=== PATIENT | male | born 1995 | race Caucasian/White ===

== ENCOUNTER 2019-08-14 10:17 | Emergency (ER) | payer OTHER, SELFPAY ==
[2019-08-14 10:27] VITALS: BP 119/67; PULSE 81; RESP 16; TEMP 36.8; O2SAT 99
--- NOTE | 2019-08-14 10:27 | ED.GENADULT ---
HPI - General Adult General Chief complaint: Upper Respiratory Infection Stated complaint: sore throat some sob and aches Time Seen by Provider: 08/14/19 10:46 Source: patient Mode of arrival: ambulatory Limitations: no limitations History of Present Illness HPI narrative: 24-year-old male patient presents [facility] with complaints of sore throat for the past 2 to 3 days. Patient states he is also had some overall body aches. Denies any fevers. Denies any ear pain. States he has had a little bit of a runny nose. And and a slight cough. Denies any chest pain or shortness of breath. Denies any abdominal pain, nausea, vomiting or diarrhea. Patient states he does have seasonal allergies at times. Patient states he has tried an [id number] cold and cough syrup to help soothe his throat. Patient states he has had strep throat before in the past. Related Data Home Medications Medication Instructions Recorded Confirmed lamotrigine 300 mg PO DAILY 04/17/19 08/14/19 quetiapine [Seroquel] 100 mg PO HS 04/17/19 08/14/19 Allergies Allergy/AdvReac Type Severity Reaction Status Date / Time amoxicillin AdvReac Unknown Nausea and Verified 08/14/19 10:42 Vomiting codeine AdvReac Unknown Nausea and Verified 08/14/19 10:42 Vomiting Penicillins AdvReac Unknown Nausea and Verified 08/14/19 10:42 Vomiting Review of Systems Review of Systems: Narrative: CONSTITUTIONAL: Denies fever, chills, or sweats. Positive body aches EYES: Denies visual changes, redness, or discharge. ENT: Positive rhinorrhea, denies congestion, positive sore throat, denies otalgia. CARDIOVASCULAR: Denies chest pain, palpitations, or edema. RESPIRATORY: Denies cough or dyspnea. GASTROINTESTINAL: Denies abdominal pain, nausea, vomiting, or diarrhea. GENITOURINARY: Denies dysuria or hematuria. SKIN: Denies rash or itching. MUSCULOSKELETAL: Denies back pain, joint pain, or myalgia. NEUROLOGIC: Denies headache, numbness, or weakness. PSYCHIATRIC: Denies anxiety or depression. [facility] Family History Family History Mother Patient's mother is in good health Sibling Patient's brother is in good health Father Family history of alcoholism Social History Social History Smoking status: Light tobacco smoker Second hand tobacco smoke exposure: No Alcohol intake: never Gender identity (if verbalized by the patient): Male Comments At the time of my signature I agree with nursing past medical history, surgical, social, and family history. There is no relevant family history pertinent to the presenting complaint. Exam Narrative: Exam Narrative: GENERAL: Well-appearing, well-nourished, and in no acute distress. HEAD: Normocephalic, atraumatic. No tenderness noted to frontal maxillary sinuses on palpation EYES: PERRLA and EOMI. ENT: Nares with erythema and edema noted bilaterally, no rhinorrhea or epistaxis. Mucous membranes moist. Posterior pharynx with some erythema but no tonsil enlargement, no exudates or lesions present. Bilateral TMs are clear with no erythema or foreign bodies in the canal. There is a little bit of fluid noted behind bilateral TMs on exam. NECK: Supple. No lymphadenopathy CHEST: Clear to auscultation. No respiratory distress. HEART: Regular rate and rhythm. No murmur heard. Normal peripheral pulses. ABDOMEN: Soft, nontender, nondistended, normal active bowel sounds. EXTREMITIES: Normal range of motion. No edema. SKIN: Warm, dry, no rash. NEURO: No focal deficits. Alert and oriented x3. Course Reevaluation(s) Reevaluation #1: Reevaluated patient after his strep test had resulted. Notified him that his strep test today is negative. Discussed with him we will send it off to the lab for further evaluation if it does come back positive in the next day or 2 [address] call and place him on antibiotics at that ti
--- NOTE | 2019-08-14 10:41 | PC.NURSE ---
NO UC ORDERED PER PROVIDER
== END 2019-08-14 11:02 | disposition home or self-care (01) ==
PROVIDERS: Emergency Provider Nurse Practitioner Family
DX: J30.2 Other seasonal allergic rhinitis (principal); J02.9 Acute pharyngitis, unspecified
CPT/HCPCS: 87081; 87880; 99213; G0463

== ENCOUNTER 2020-03-31 12:06 | Emergency (ER) | payer OTHER, SELFPAY ==
[2020-03-31 12:25] VITALS: BP 122/73; PULSE 81; RESP 18; TEMP 37; O2SAT 99
--- NOTE | 2020-03-31 12:36 | ED.DENTAL ---
HPI - Dental/Oral General Stated complaint: Dental Infection Source: patient Mode of arrival: ambulatory Limitations: no limitations History of Present Illness HPI Narrative: Patient is a 25-year-old male who presents complaining of dental pain. Patient reports left upper dental pain x2 days. Patient reports cracked tooth and increasing pain over the past 2 days. He reports taking ibuprofen with limited relief. He reports appointment with dentist in April. He denies all other complaints. MD Complaint: tooth pain Related Data Home Medications Medication Instructions Recorded Confirmed lamotrigine 300 mg PO DAILY 04/17/19 08/14/19 quetiapine [Seroquel] 100 mg PO HS 04/17/19 08/14/19 Allergies Allergy/AdvReac Type Severity Reaction Status Date / Time amoxicillin AdvReac Unknown Nausea and Verified 03/31/20 12:42 Vomiting codeine AdvReac Unknown Nausea and Verified 03/31/20 12:42 Vomiting Penicillins AdvReac Unknown Nausea and Verified 03/31/20 12:42 Vomiting Review of Systems Review of Systems: Narrative: CONSTITUTIONAL: Denies fever, chills, or sweats. EYES: Denies visual changes, redness, or discharge. ENT: Reports dental pain CARDIOVASCULAR: Denies chest pain, palpitations, or edema. RESPIRATORY: Denies cough or dyspnea. GASTROINTESTINAL: Denies abdominal pain, nausea, vomiting, or diarrhea. GENITOURINARY: Denies dysuria or hematuria. SKIN: Denies rash or itching. MUSCULOSKELETAL: Denies back pain, joint pain, or myalgia. NEUROLOGIC: Denies headache, numbness, dizziness, or weakness. PSYCHIATRIC: Denies anxiety or depression. [facility] Family History Family History Mother Patient's mother is in good health Sibling Patient's brother is in good health Father Family history of alcoholism Social History Social History Smoking status: Light tobacco smoker Second hand tobacco smoke exposure: No Alcohol intake: never Substance use: current Substance use type: marijuana Living arrangements: with family Gender identity (if verbalized by the patient): Male Exam Narrative: Exam Narrative: GENERAL: Well-appearing, well-nourished, and in no acute distress. HEAD: Normocephalic, atraumatic. EYES: EOMI. No redness or drainage. Conjunctiva are normal. ENT: Mucous membranes pink and moist. Multiple dental caries and fractures. CHEST: No respiratory distress. HEART: Regular rate and rhythm. EXTREMITIES: Normal range of motion. SKIN: Warm, dry, no rash. NEURO: No focal deficits. Alert and oriented x3. Gait steady. PSYCH: Normal affect. No signs of depression or anxiety. MDM - Dental/Oral MDM Narrative Medical decision making narrative: Patient has multiple dental caries as well as dental fractures. Discussed with patient the importance of seeing a dentist regularly. Patient reports scheduled dental appointment in April. Discussed starting on antibiotics at this time as well as ibuprofen. Patient is stable for discharge to home with outpatient follow-up as needed. Differential Diagnosis Differential diagnosis: Likely dental caries, toothache, dental abscess and fracture of tooth Critical Care Time Critical Care Time Critical Care Time: No Discharge Plan Discharge Clinical Impression: Pain, dental Patient Disposition: Home, Self-Care Condition: Stable Instructions: Antibiotic Form, Toothache (ED) Additional Instructions: Take antibiotics as directed. You may use ibuprofen or Tylenol for pain. Follow-up with dentist as discussed. Prescriptions: New clindamycin HCl 300 mg capsule 300 mg PO Q8H 7 Days Qty: 21 RF: 0 ibuprofen 800 mg tablet 800 mg PO TID PRN (Reason: pain) Qty: 20 RF: 0 No Action quetiapine [Seroquel] 100 mg Tablet 100 mg PO HS RF: 0 lamotrigine 300 mg Tablet Extended Release 24hr 300 mg PO DAILY RF: 0 ceti
== END 2020-03-31 12:45 | disposition home or self-care (01) ==
PROVIDERS: Emergency Provider Nurse Practitioner
DX: K08.89 Other specified disorders of teeth and supporting structures (principal); F17.200 Nicotine dependence, unspecified, uncomplicated
CPT/HCPCS: 99213; G0463

== ENCOUNTER 2020-04-27 10:29 | Emergency (ER) | payer OTHER, SELFPAY ==
[2020-04-27 10:48] VITALS: BP 120/72; PULSE 77; RESP 18; TEMP 37.2; O2SAT 100
--- NOTE | 2020-04-27 10:50 | ED.GENADULT ---
HPI - General Adult General Chief complaint: Dental/Oral Stated complaint: tooth pain Time Seen by Provider: 04/27/20 10:50 Source: patient Mode of arrival: ambulatory Limitations: no limitations History of Present Illness HPI narrative: 25-year-old male patient presents to the [facility] with complaints of left upper dental pain for the past week. Patient was seen here last week for similar symptoms and was given an antibiotic. Patient states he did feel better after the antibiotic but states he has a broken tooth and did call to get an appointment to see a dentist but does not have an appointment for another 3 months. Patient states he has been taking Tylenol for pain which does help and rates his pain about a 3 out of 10 at this time. Related Data Home Medications Medication Instructions Recorded Confirmed lamotrigine 300 mg PO DAILY 04/17/19 04/27/20 quetiapine [Seroquel] 100 mg PO HS 04/17/19 04/27/20 Allergies Allergy/AdvReac Type Severity Reaction Status Date / Time amoxicillin AdvReac Unknown Nausea and Verified 04/27/20 11:01 Vomiting codeine AdvReac Unknown Nausea and Verified 04/27/20 11:01 Vomiting Penicillins AdvReac Unknown Nausea and Verified 04/27/20 11:01 Vomiting Review of Systems Review of Systems: Narrative: CONSTITUTIONAL: Denies fever, chills, or sweats. EYES: Denies visual changes, redness, or discharge. ENT: Denies rhinorrhea, congestion, sore throat, or otalgia. Positive left upper dental pain x1 week CARDIOVASCULAR: Denies chest pain, palpitations, or edema. RESPIRATORY: Denies cough or dyspnea. GASTROINTESTINAL: Denies abdominal pain, nausea, vomiting, or diarrhea. GENITOURINARY: Denies dysuria or hematuria. SKIN: Denies rash or itching. MUSCULOSKELETAL: Denies back pain, joint pain, or myalgia. NEUROLOGIC: Denies headache, numbness, or weakness. PSYCHIATRIC: Denies anxiety or depression. [facility] Family History Family History Mother Patient's mother is in good health Sibling Patient's brother is in good health Father Family history of alcoholism Social History Social History Smoking status: Light tobacco smoker Second hand tobacco smoke exposure: No Alcohol intake: never Substance use: current Substance use type: marijuana Gender identity (if verbalized by the patient): Male Comments At the time of my signature I agree with nursing past medical history, surgical, social, and family history. There is no relevant family history pertinent to the presenting complaint. Exam Narrative: Exam Narrative: GENERAL: Well-appearing, well-nourished, and in no acute distress. HEAD: Normocephalic, atraumatic. EYES: PERRLA and EOMI. ENT: Nares clear, no rhinorrhea or epistaxis. Mucous membranes moist. Patient does have a left upper molar that is broken with surrounding erythema and tenderness to the touch. Patient also noted to have a small tear to the inside of his cheek from where it is rubbing up against the broken molar. No obvious swelling noted to the outer cheek. Patient able to tolerate secretions well and talks in clear complete sentences. NECK: Supple. No lymphadenopathy CHEST: Clear to auscultation. No respiratory distress. HEART: Regular rate and rhythm. No murmur heard. Normal peripheral pulses. ABDOMEN: Soft, nontender, nondistended, normal active bowel sounds. EXTREMITIES: Normal range of motion. No edema. SKIN: Warm, dry, no rash. NEURO: No focal deficits. Alert and oriented x3. Course Vital Signs Vital signs: Vital Signs Temperature 37.2 C 04/27/20 10:48 Pulse Rate 77 04/27/20 10:48 Respiratory Rate 18 04/27/20 10:48 Blood Pressure 120/72 04/27/20 10:48 Pulse Oximetry 100 04/27/20 10:48 Temperature 37.2 C 04/27/20 10:48 Pulse Rate 77 04/27/20 10:48 Respiratory Rate 18 04/27/20 10:48 Blood Pressure 120/72
== END 2020-04-27 11:08 | disposition home or self-care (01) ==
PROVIDERS: Emergency Provider Nurse Practitioner Family
DX: K02.9 Dental caries, unspecified (principal); S02.5XXA Fracture of tooth (traumatic), initial encounter for closed fracture; X58.XXXA Exposure to other specified factors, initial encounter
CPT/HCPCS: 99213; G0463

== ENCOUNTER 2020-08-07 10:17 | Emergency (ER) | payer OTHER, SELFPAY ==
--- NOTE | ~2020-08-07 | XR_ITS ---
EXAMINATION: XR abdomen/kub 1V EXAM DATE: 08/07/2020 11:04 INDICATION: Left flank pain, intermittent for 8 months. History of kidney stones. TECHNIQUE: Frontal projection(s) of the abdomen for interpretation. There is no prior study for jeannette terry. FINDINGS: Couple of calcific densities which are rather linear, and could be some early chondral car tilage calcification, they would be unusual shapes for kidney stones. One of these projects over expe cted course of the left proximal ureter. These have been indicated on the exam. No pelvic calcificati ons. Expected amount of colonic stool. No dilated small bowel. There is no organomegaly. There are no osseous abnormalities identified. IMPRESSION: Several calcific densities most likely not genitourinary but if symptoms persist CT scan without contrast would be appropriate. Reviewed, dictated and finalized at location A. IMPRESSION: Several calcific densities most likely not genitourinary but if sy mptoms persist CT scan without contrast would be appropriate.
[2020-08-07 10:20] VITALS: BP 133/73; PULSE 86; RESP 20; TEMP 36.6; O2SAT 99
--- NOTE | 2020-08-07 10:22 | ED.BACK ---
HPI - Back Pain/Injury General Chief Complaint: Urogenital-Male Stated Complaint: Lower back pain Time Seen by Provider: 08/07/20 10:40 Source: patient and RN notes reviewed Mode of arrival: ambulatory Limitations: no limitations History of Present Illness HPI Narrative: 25 year old male presents concern for intermittent left flank pain. Reports pain has been occurring on and off for 8 to 12 months. Reports he was diagnosed with a 3 mm kidney stone many months ago, is unsure if he passed the stone. Reports he will have persistent pain for 1 day, then pain will be gone for a day or several days. Reports pressure to the left flank relieves pain. Reports currently pain is approximately 3/10. He denies nausea, vomiting, constipation, diarrhea, fever, dysuria, frequency, urgency. MD elicited complaint: back pain Related Data Home Medications Medication Instructions Recorded Confirmed quetiapine [Seroquel] 100 mg PO HS 04/17/19 08/07/20 Allergies Allergy/AdvReac Type Severity Reaction Status Date / Time amoxicillin AdvReac Unknown Nausea and Verified 08/07/20 10:38 Vomiting codeine AdvReac Unknown Nausea and Verified 08/07/20 10:38 Vomiting Penicillins AdvReac Unknown Nausea and Verified 08/07/20 10:38 Vomiting Review of Systems Review of Systems: Narrative: CONSTITUTIONAL: Denies malaise, chills, sweats, or fever. CARDIOVASCULAR: Denies chest pain, palpitations, or edema. RESPIRATORY: Denies cough or dyspnea. GASTROINTESTINAL: Denies abdominal pain, nausea, vomiting, diarrhea, bloody, or mucous stools. GENITOURINARY: Denies dysuria or hematuria. SKIN: Denies rash or itching. MUSCULOSKELETAL: Reports intermittent left flank pain for 8 to 12 months. Denies joint pain, or myalgia. All systems reviewed & are unremarkable except as noted in HPI and below PMFSH Family History Family History Mother Patient's mother is in good health Sibling Patient's brother is in good health Father Family history of alcoholism Social History Social History Smoking status: Light tobacco smoker Second hand tobacco smoke exposure: No Alcohol intake: never Substance use: current Substance use type: marijuana Gender identity (if verbalized by the patient): Male Comments At time of signature, agree with nursing past medical, surgical, social and family history. There is no relevant family history pertinent to the presenting complaint Exam Narrative: Exam Narrative: GENERAL: Well-appearing, well-nourished, and in no acute distress. HEAD: Normocephalic. EYES: PERRLA, conjunctivae clear. NECK: Supple. No lymphadenopathy CHEST: Clear to auscultation. No respiratory distress. HEART: Regular rate and rhythm. ABDOMEN: Soft, nontender upon palpation, nondistended, normal active bowel sounds, no palpable or pulsatile masses, no guarding. Minimal left CVA tenderness SKIN: Warm, dry, no rash. NEURO: Alert and oriented x3. PSYCH: Normal mood and affect Course Course Emergency Course: Patient is aware of diagnosis, understands and agrees to treatment plan. Anticipatory guidance given. Patient agrees to follow-up as directed and is aware of reasons to seek care at the emergency department. Portions of this record may have been created with voice recognition software Vital Signs Vital signs: Vital Signs Temperature 97.9 F 08/07/20 10:20 Pulse Rate 86 08/07/20 10:20 Respiratory Rate 20 08/07/20 10:20 Blood Pressure 133/73 08/07/20 10:20 Pulse Oximetry 99 08/07/20 10:20 Temperature 97.9 F 08/07/20 10:20 Pulse Rate 86 08/07/20 10:20 Respiratory Rate 20 08/07/20 10:20 Blood Pressure 133/73 08/07/20 10:20 Pulse Oximetry 99 08/07/20 10:20 Reviewed. MDM - Back Pain/Injury MDM Narrative Medical decision making narrative: Exam findings, UA, and imaging show no acute con
== END 2020-08-07 11:35 | disposition home or self-care (01) ==
PROVIDERS: Emergency Provider Nurse Practitioner
DX: R10.9 Unspecified abdominal pain (principal); F17.200 Nicotine dependence, unspecified, uncomplicated; F41.9 Anxiety disorder, unspecified; F32.9 Major depressive disorder, single episode, unspecified
CPT/HCPCS: 74018; 81003; 99213; G0463

== ENCOUNTER 2020-11-09 08:11 | Emergency (ER) | payer OTHER, SELFPAY ==
[2020-11-09 08:23] VITALS: BP 117/72; PULSE 73; RESP 18; TEMP 36.3; O2SAT 99
--- NOTE | 2020-11-09 08:37 | ED.DENTAL ---
HPI - Dental/Oral General Chief complaint: Dental/Oral Stated complaint: tooth pain Time Seen by Provider: 11/09/20 08:35 Source: patient and RN notes reviewed Mode of arrival: ambulatory Limitations: no limitations History of Present Illness HPI Narrative: 25-year-old male presents concern for left lower dental pain. Reports a broken tooth in that area that has started to cause pain. Reports the tooth has been broken for approximately a year and a half. He reports he also has impacted rear teeth. Reports she is trying to find a oral surgeon. Reports he is on a waiting list to dentist to address his other dental issues. Reports he had an infection in April that was successfully treated with antibiotics. He denies any difficulty swallowing, fever. MD Complaint: tooth pain Related Data Home Medications Medication Instructions Recorded Confirmed quetiapine [Seroquel] 100 mg PO HS 04/17/19 11/09/20 lamotrigine 300 mg PO DAILY 11/09/20 11/09/20 propranolol 80 mg PO HS 11/09/20 11/09/20 Allergies Allergy/AdvReac Type Severity Reaction Status Date / Time amoxicillin AdvReac Unknown Nausea and Verified 11/09/20 08:38 Vomiting codeine AdvReac Unknown Nausea and Verified 11/09/20 08:38 Vomiting Penicillins AdvReac Unknown Nausea and Verified 11/09/20 08:38 Vomiting Review of Systems Review of Systems: CONSTITUTIONAL: Denies malaise, chills, sweats, or fever. ENT: Denies rhinorrhea, congestion, sinus pain, otalgia or sore throat. Reports left lower dental pain MUSCULOSKELETAL: Denies myalgia. NEUROLOGIC: Reports mild headache. All systems reviewed & are unremarkable except as noted in HPI and below PMFSH Family History Family History Mother Patient's mother is in good health Sibling Patient's brother is in good health Father Family history of alcoholism Social History Social History Smoking status: Light tobacco smoker Second hand tobacco smoke exposure: No Alcohol intake: never Substance use: current Substance use type: marijuana Gender identity (if verbalized by the patient): Male Comments At time of signature, agree with nursing past medical, surgical, social and family history. There is no relevant family history pertinent to the presenting complaint Exam Narrative: GENERAL: Well-appearing, well-nourished, and in no acute distress. HEAD: Normocephalic, atraumatic. EYES: PERRLA, conjunctivae clear ENT: Nares clears. Mucous membranes moist. Oropharynx without erythema or lesions. Tonsils not enlarged and without exudate. Gingival erythema and edema near teeth 17 and 18, no periapical abscess noted NECK: Supple. CHEST: No respiratory distress. Speaks in full sentences. HEART: Regular rate and rhythm. SKIN: Warm, dry, no rash. NEURO: Alert and oriented x3. PSYCH: Normal mood and affect Course Course Emergency Course: Patient is aware of diagnosis, understands and agrees to treatment plan. Anticipatory guidance given. Patient agrees to follow-up as directed and is aware of reasons to seek care at the emergency department. Portions of this record may have been created with voice recognition software Vital Signs Vital signs: Vital Signs Temperature 97.4 F L 11/09/20 08:23 Pulse Rate 73 11/09/20 08:23 Respiratory Rate 18 11/09/20 08:23 Blood Pressure 117/72 11/09/20 08:23 Pulse Oximetry 99 11/09/20 08:23 Temperature 97.4 F L 11/09/20 08:23 Pulse Rate 73 11/09/20 08:23 Respiratory Rate 18 11/09/20 08:23 Blood Pressure 117/72 11/09/20 08:23 Pulse Oximetry 99 11/09/20 08:23 Reviewed. MDM - Dental/Oral MDM Narrative Medical decision making narrative: Patients pain and complaint coupled with physical findings are consistant with dentalgia. There are no focal signs of space occupying lesions that are compromising to the airway; no
== END 2020-11-09 08:47 | disposition home or self-care (01) ==
PROVIDERS: Emergency Provider Nurse Practitioner
DX: K08.89 Other specified disorders of teeth and supporting structures (principal); F17.200 Nicotine dependence, unspecified, uncomplicated
CPT/HCPCS: 99213; G0463

== ENCOUNTER 2021-01-11 08:36 | Emergency (ER) | payer OTHER, SELFPAY ==
--- NOTE | 2021-01-11 08:42 | ED.EAR ---
HPI - Ear Problem General Chief complaint: Ear Stated complaint: ear pain Time Seen by Provider: 01/11/21 08:42 Source: patient and RN notes reviewed History of Present Illness HPI Narrative: Patient is a 25-year-old male who presents the urgent care with complaints of left ear pain for the last 2 days. Patient states that he feels like there is fluid behind the ear, pressure and drainage. Patient has taken Tylenol for the pain. Denies any fever, chills, nausea, vomiting. Patient denies putting anything in the ear. No other acute complaints. No acute distress noted. Patient aware of the plan of care. Some parts of this dictation were generated by voice recognition software and may contain typographical and/or grammatical inaccuracies. Related Data Home Medications Medication Instructions Recorded Confirmed quetiapine [Seroquel] 100 mg PO HS 04/17/19 01/11/21 lamotrigine 300 mg PO DAILY 11/09/20 01/11/21 propranolol 80 mg PO HS 11/09/20 01/11/21 meloxicam 7.5 mg PO BID 01/11/21 01/11/21 tamsulosin 0.4 mg PO DAILY 01/11/21 01/11/21 Allergies Allergy/AdvReac Type Severity Reaction Status Date / Time amoxicillin AdvReac Unknown Nausea and Verified 01/11/21 08:55 Vomiting codeine AdvReac Unknown Nausea and Verified 01/11/21 08:55 Vomiting Penicillins AdvReac Unknown Nausea and Verified 01/11/21 08:55 Vomiting Review of Systems Review of Systems: CONSTITUTIONAL: Denies fever, chills, or sweats. EYES: Denies visual changes, redness, or discharge. ENT: Denies rhinorrhea, congestion, sore throat. Reports of left otalgia CARDIOVASCULAR: Denies chest pain, palpitations, or edema. RESPIRATORY: Denies cough or dyspnea. GASTROINTESTINAL: Denies abdominal pain, nausea, vomiting, or diarrhea. GENITOURINARY: Denies dysuria or hematuria. SKIN: Denies rash or itching. MUSCULOSKELETAL: Denies back pain, joint pain, or myalgia. NEUROLOGIC: Denies headache, numbness, or weakness. All other systems reviewed are negative, except as documented in HPI. [facility] Family History Family History Mother Patient's mother is in good health Sibling Patient's brother is in good health Father Family history of alcoholism Social History Social History Smoking status: Light tobacco smoker Second hand tobacco smoke exposure: No Alcohol intake: never Substance use: current Substance use type: marijuana Gender identity (if verbalized by the patient): Male Comments At the time of my signature, I reviewed and agree with the nursing past medical, surgical, social, and family history. There is no relevant family history pertinent to the patient complaint. Exam Narrative: GENERAL: This is a well-nourished, well-developed patient, in no apparent distress. HEAD: normocephalic, atraumatic. EYES: PERRL. Sclera clear/white. Vision is grossly intact. EARS: External ears normal, mild to moderate erythema and edema noted to the left ear canal without drainage, right auditory canals clear and without drainage, left TM injected with moderate effusion, right TM normal without perforation. Hearing grossly intact. NOSE: External nose normal with no obvious nasal discharge, nares without redness, no rhinorrhea. THROAT: Mucous membranes moist NECK: Neck supple CARDIOVASCULAR: Regular rate and rhythm without murmurs, gallops, or rubs. RESPIRATORY: Clear to auscultation. Breath sounds equal bilaterally. No wheezes, rales, or rhonchi. SKIN: warm, intact with no suspicious lesions or rash, good texture and turgor. NEURO: awake, alert, and oriented to person, place and time. There were no obvious focal neurologic abnormalities. EXTREMITIES: No clubbing, cyanosis, or edema. Course Vital Signs Vital signs: Vital Signs Temperature 98.2 F 01/11/21 08:46 Pulse Rate 87 01/11/21 08:46 Respiratory Rate 14 01/11/21 08:46 Blood
[2021-01-11 08:46] VITALS: BP 114/63; PULSE 87; RESP 14; TEMP 36.8; O2SAT 98
== END 2021-01-11 09:00 | disposition home or self-care (01) ==
PROVIDERS: Emergency Provider Nurse Practitioner Family
DX: H66.92 Otitis media, unspecified, left ear (principal); H60.502 Unspecified acute noninfective otitis externa, left ear; F17.200 Nicotine dependence, unspecified, uncomplicated; F41.9 Anxiety disorder, unspecified; F32.9 Major depressive disorder, single episode, unspecified; F43.10 Post-traumatic stress disorder, unspecified
CPT/HCPCS: 99213; G0463

== ENCOUNTER 2021-06-25 13:41 | Emergency (ER) | payer OTHER, SELFPAY ==
[2021-06-25 14:06] VITALS: BP 137/87; PULSE 79; RESP 16; TEMP 36.7; O2SAT 99
--- NOTE | 2021-06-25 14:34 | ED.DENTAL ---
HPI - Dental/Oral General Chief complaint: Dental/Oral Stated complaint: tooth pain Time Seen by Provider: 06/25/21 14:35 Source: patient, RN notes reviewed and old records reviewed Mode of arrival: ambulatory Limitations: no limitations History of Present Illness HPI Narrative: 30-year-old male presents to the [facility] with right posterior lower dental pain, swelling for the last 2 to 3 days. Has a history of dental abscesses. States he has an [facility] in a couple of weeks. MD Complaint: tooth pain Related Data Home Medications Medication Instructions Recorded Confirmed quetiapine [Seroquel] 100 mg PO HS 04/17/19 06/25/21 lamotrigine 300 mg PO DAILY 11/09/20 06/25/21 propranolol 80 mg PO HS 11/09/20 06/25/21 Allergies Allergy/AdvReac Type Severity Reaction Status Date / Time amoxicillin AdvReac Unknown Nausea and Verified 06/25/21 14:20 Vomiting codeine AdvReac Unknown Nausea and Verified 06/25/21 14:20 Vomiting Penicillins AdvReac Unknown Nausea and Verified 06/25/21 14:20 Vomiting Review of Systems Review of Systems: All systems reviewed & are unremarkable except as noted in HPI and below Constitutional: Constitutional: Reports no additional constitutional complaints, Denies chills and Denies fever(s) Eyes: Eyes: Reports no additional eye complaints ENT: Reports as per HPI Comments: Dental pain right lower Cardiovascular: Cardiovascular: Reports no additional cardiovascular complaints, Denies chest pain and Denies dyspnea Respiratory: Respiratory: Reports no additional respiratory complaints, Denies cough and Denies dyspnea Musculoskeletal: Musculoskeletal: Reports no additional musculoskeletal complaints Integumentary/Breasts: Skin/Breast: Reports system reviewed and no additional complaints, except as docu Neurologic: Reports system reviewed and no additional complaints, except as documented Psychiatric: Psychiatric: Reports no additional psychiatric complaints Allergic/Immunologic: Allergic/Immunologic: Reports no additional allergic/immunologic complaints [facility] Family History Family History Mother Patient's mother is in good health Sibling Patient's brother is in good health Father Family history of alcoholism Social History Social History Smoking status: Light tobacco smoker Second hand tobacco smoke exposure: No Alcohol intake: never Substance use: current Substance use type: marijuana Gender identity (if verbalized by the patient): Male Comments At the time of my signature, I reviewed and agree with the nursing past medical, surgical, social, and family history. There is no relevant family history pertinent to the patient complaint. Exam Const: General: healthy appearing, no acute distress and alert Nutritional Appearance: well nourished Orientation/consciousness: patient oriented x3 Limitations: no limitations HENMT: Head: normal to inspection Ears: external ears normal, TM's normal bilaterally and EAC's normal General nose exam: Normal external nose present and Normal nasal mucous membranes and turbinates present Face and sinus: normal facial exam Mouth: Yes Normal oral and palatal mucosa present Teeth and gingiva: poor dentition Teeth image: 1. Decayed teeth with surrounding erythema in the gingiva Throat: posterior oropharynx normal, tonsils normal and uvula midline Eyes: Conjunctivae: conjunctivae normal Pupils: Equal, round and reactive pupils present Neck: Neck: normal visual inspection, no lymphadenopathy and no meningeal signs Chest: Chest palpation & inspection: normal inspection of the chest Resp: Effort & Inspection: normal respiratory effort Auscultation: clear to auscultation bilaterally Cardio: Rate: regular rate Rhythm: regular rhythm : Gen
== END 2021-06-25 14:45 | disposition home or self-care (01) ==
PROVIDERS: Emergency Provider Nurse Practitioner
DX: K04.7 Periapical abscess without sinus (principal); F17.200 Nicotine dependence, unspecified, uncomplicated; F32.A Depression, unspecified
CPT/HCPCS: 99213; G0463

== ENCOUNTER 2021-08-08 09:26 | Emergency (ER) | payer OTHER, SELFPAY ==
[2021-08-08 09:30] VITALS: BP 137/82; PULSE 86; RESP 16; TEMP 36.2; O2SAT 99
--- NOTE | 2021-08-08 09:37 | ED.URI ---
HPI - URI/Sore Throat General Chief Complaint: Upper Respiratory Infection Stated Complaint: sinus pressure dizzy scratch throat Time Seen by Provider: 08/08/21 09:45 Source: patient and RN notes reviewed Mode of arrival: ambulatory Limitations: no limitations History of Present Illness HPI Narrative: 26-year-old male presents with concern for sinus pressure, congestion, drainage. Reports the right nostril is clogged and the right ear has pressure. He reports sneezing and scratchy throat. He denies fever, bodies, chills, sweats, cough. Denies any [id number] intervention. Reports 2 weeks ago he was on clindamycin for a right wisdom tooth infection. MD elicited complaint: nasal congestion Related Data Home Medications Medication Instructions Recorded Confirmed quetiapine [Seroquel] 100 mg PO HS 04/17/19 08/08/21 lamotrigine 300 mg PO DAILY 11/09/20 08/08/21 Allergies Allergy/AdvReac Type Severity Reaction Status Date / Time amoxicillin AdvReac Unknown Nausea and Verified 08/08/21 09:48 Vomiting codeine AdvReac Unknown Nausea and Verified 08/08/21 09:48 Vomiting Penicillins AdvReac Unknown Nausea and Verified 08/08/21 09:48 Vomiting Review of Systems Review of Systems: CONSTITUTIONAL: Denies malaise, chills, sweats, or fever. EYES: Denies visual changes, redness, or discharge. ENT: Reports rhinorrhea, right sinus congestion, right ear pressure. Denies sinus pain, otalgia and sore throat. CARDIOVASCULAR: Denies chest pain, palpitations, or edema. RESPIRATORY: Denies cough. Denies dyspnea. GASTROINTESTINAL: Denies abdominal pain, nausea, vomiting, diarrhea SKIN: Denies rash or itching. MUSCULOSKELETAL: Denies myalgia. NEUROLOGIC: Denies headache. All systems reviewed & are unremarkable except as noted in HPI and below PMFSH Family History Family History Mother Patient's mother is in good health Sibling Patient's brother is in good health Father Family history of alcoholism Social History Social History Smoking status: Light tobacco smoker Second hand tobacco smoke exposure: No Alcohol intake: never Substance use: current Substance use type: marijuana Gender identity (if verbalized by the patient): Male Comments At time of signature, agree with nursing past medical, surgical, social and family history. There is no relevant family history pertinent to the presenting complaint Exam Narrative: GENERAL: Well-appearing, well-nourished, and in no acute distress. HEAD: Normocephalic EYES: PERRLA, conjunctivae clear ENT: Nares clear, right turbinates edematous and erythematous, clear discharge. Mucous membranes moist. TM pearly hyatt with dull light reflex bilaterally, right bony landmarks slightly erythematous without TM bulging; no tragal tenderness. Oropharynx not erythematous without lesions. Tonsils not enlarged and without exudate, no drooling, no hoarseness, no trismus, uvula midline. NECK: Supple. No lymphadenopathy CHEST: Clear to auscultation, breath sounds equal. No wheezing, rhonchi, rales, or stridor. No respiratory distress, speaks in full sentences. HEART: Regular rate and rhythm. No murmur heard. SKIN: Warm, dry, no rash. NEURO: Alert and oriented x3. PSYCH: Normal mood and affect Course Course Emergency Course: Discussed ear exam with patient and discussed benefits versus risks of starting antibiotics now or waiting for resolution via other pharmacological interventions such as steroids and Flonase. Patient prefers to wait to start antibiotics given he just took clindamycin and antibiotics make her upset. Patient is aware of diagnosis, understands and agrees to treatment plan. Anticipatory guidance given. Patient agrees to follow-up as directed and is aware of reasons to seek care at the emergency department. Portions of this record may have been created with vo
== END 2021-08-08 10:06 | disposition home or self-care (01) ==
PROVIDERS: Emergency Provider Nurse Practitioner
DX: H69.91 Unspecified Eustachian tube disorder, right ear (principal); J01.00 Acute maxillary sinusitis, unspecified; F17.200 Nicotine dependence, unspecified, uncomplicated; F12.90 Cannabis use, unspecified, uncomplicated
CPT/HCPCS: 99213; G0463

== ENCOUNTER 2023-08-25 10:30 | Emergency (ER) | payer OTHER, SELFPAY ==
[2023-08-25 10:36] VITALS: BP 124/82; PULSE 95; RESP 20; TEMP 36.7; O2SAT 100
--- NOTE | 2023-08-25 10:53 | ED.URI ---
HPI - URI/Sore Throat General Chief Complaint: Upper Respiratory Infection Stated Complaint: throat Time Seen by Provider: 08/25/23 10:50 Source: patient, RN notes reviewed and old records reviewed Mode of arrival: ambulatory Limitations: no limitations History of Present Illness HPI Narrative: 28 year old male patient who reports 5-7 day history of sore throat with throat feeling swollen, has had some nasal congestion and drainage denies any cough or any fevers. He states that he has been taking OTC cough drops for his throat discomfort. MD elicited complaint: sore throat, rhinorrhea and nasal congestion Onset (ago): day(s) (5-7) Severity: moderate Exacerbating factors: swallowing Treatments prior to arrival: other (cough drops) Related Data Allergies Allergy/AdvReac Type Severity Reaction Status Date / Time amoxicillin AdvReac Unknown Nausea and Verified 08/08/21 09:48 Vomiting codeine AdvReac Unknown Nausea and Verified 08/08/21 09:48 Vomiting Penicillins AdvReac Unknown Nausea and Verified 08/08/21 09:48 Vomiting Review of Systems Review of Systems: CONSTITUTIONAL: Denies malaise, chills, sweats, or fever. EYES: Denies visual changes, redness, or discharge. ENT: Reports rhinorrhea, congestion, sinus pain,no otalgia and positive for sore throat. CARDIOVASCULAR: Denies chest pain, palpitations, or edema. RESPIRATORY: Reports no cough.? Denies dyspnea. GASTROINTESTINAL: Denies abdominal pain, nausea, vomiting, diarrhea SKIN: Denies rash or itching. MUSCULOSKELETAL: Denies myalgia. NEUROLOGIC: Denies headache. All systems reviewed & are unremarkable except as noted in HPI and below PMFSH Past Medical History Medical History (Updated 08/26/23 @ 16:02 by Gerri Joiner NP) Anxiety Cyst on ear Depression Disorder of left ear lobe Family History Family History Mother Patient's mother is in good health Sibling Patient's brother is in good health Father Family history of alcoholism Social History Social History Smoking packs per day: 1 Smoking cigarettes per day: 20.0 Years smoked: 5 Smoking pack-years: 5.00 Smoking status: Former smoker Tobacco type: cigarettes Second hand tobacco smoke exposure: No Alcohol intake: never Substance use: current Substance use type: marijuana Living arrangements: with family Gender identity (if verbalized by the patient): Male Comments At time of signature, agree with nursing past medical, surgical, social and family history. There is no relevant family history pertinent to the presenting complaint Exam Narrative: GENERAL: Well-appearing, well-nourished, and in no acute distress. HEAD: Normocephalic EYES: PERRLA, conjunctivae clear ENT: Nares clear, turbinates edematous and erythematous, clear discharge. Mucous membranes moist. TM pearly hyatt with dull light reflex bilaterally; no tragal tenderness. Oropharynx erythematous without lesions. Tonsils red and enlarged and without exudate, no drooling, no hoarseness, no trismus, uvula midline. NECK: Supple. No lymphadenopathy CHEST: Clear to auscultation, breath sounds equal. No wheezing, rhonchi, rales, or stridor. No respiratory distress, speaks in full sentences.SAO2 100% on room air HEART: Regular rate and rhythm. No murmur heard. SKIN: Warm, dry, no rash. NEURO: Alert and oriented x3. PSYCH: Normal mood and affect Course Course Emergency Course: Patient is aware of diagnosis, understands and agrees to treatment plan.? Anticipatory guidance given.? Patient agrees to follow-up as directed and is aware of reasons to seek care at the emergency department. Portions of this record may have been created with voice recognition software Level of Care: Express Care Visit Vital Signs Vital signs: Vital Signs Temperature 36.7 C
== END 2023-08-25 11:14 | disposition home or self-care (01) ==
PROVIDERS: Emergency Provider Registered Nurse
DX: J02.0 Streptococcal pharyngitis (principal); Z87.891 Personal history of nicotine dependence; F12.90 Cannabis use, unspecified, uncomplicated
CPT/HCPCS: 87880; 99213; G0463

== ENCOUNTER 2023-08-31 11:27 | Emergency (ER) | payer OTHER, SELFPAY ==
[2023-08-31 11:32] VITALS: BP 138/95; PULSE 105; RESP 20; TEMP 36.6; O2SAT 100
--- NOTE | 2023-08-31 11:49 | ED.URI ---
HPI - URI/Sore Throat General Chief Complaint: Upper Respiratory Infection Stated Complaint: Sore throat/ears/sinus History of Present Illness HPI Narrative: Patient presents with continued sore throat. Patient also reports nasal congestion runny nose and cough. Patient was treated on 08/24 for a strep positive test. And placed on a Z-Ozzy at that time. Patient states he took all the medication as prescribed and states he does not have any improvement in his symptoms. No trouble swallowing no drooling no shortness of breath no chest pain. Related Data Allergies Allergy/AdvReac Type Severity Reaction Status Date / Time amoxicillin AdvReac Unknown Nausea and Verified 08/31/23 11:46 Vomiting codeine AdvReac Unknown Nausea and Verified 08/31/23 11:46 Vomiting Penicillins AdvReac Unknown Nausea and Verified 08/31/23 11:46 Vomiting Review of Systems Review of Systems: CONSTITUTIONAL: Denies fever, chills, or sweats. EYES: Denies visual changes, redness, or discharge. ENT: Denies rhinorrhea, congestion, sore throat, or otalgia. CARDIOVASCULAR: Denies chest pain, palpitations, or edema. RESPIRATORY: Denies cough or dyspnea. GASTROINTESTINAL: Denies abdominal pain, nausea, vomiting, or diarrhea. GENITOURINARY: Denies dysuria or hematuria. SKIN: Denies rash or itching. MUSCULOSKELETAL: Denies back pain, joint pain, or myalgia. NEUROLOGIC: Denies headache, numbness, or weakness. PSYCHIATRIC: Denies anxiety or depression. [facility] Past Medical History Medical History (Updated 08/31/23 @ 11:55 by COREY Byrd) Anxiety Cyst on ear Depression Disorder of left ear lobe Family History Family History Mother Patient's mother is in good health Sibling Patient's brother is in good health Father Family history of alcoholism Social History Social History Smoking packs per day: 1 Smoking cigarettes per day: 20.0 Years smoked: 5 Smoking pack-years: 5.00 Smoking status: Former smoker Tobacco type: cigarettes Second hand tobacco smoke exposure: No Alcohol intake: never Substance use: current Substance use type: marijuana Living arrangements: with family Gender identity (if verbalized by the patient): Male Comments At time of signature, agree with nursing past medical, surgical, social and family history. There is no relevant family history pertinent to the presenting complaint Exam Narrative: The patient is a well-developed, well-nourished in no acute distress. SKIN: Skin is warm and dry without erythema, swelling or exudate. There is good turgor. No tenting. HEAD: Atraumatic. Normocephalic. No temporal or scalp tenderness. EYES: Moist and bright. Sclera and conjunctivae normal. No discharge. PERRLA. Extraocular motions intact. Gross visual acuity intact. EARS: Pinna is normal shape and contour. Clear external auditory canals. TM pearly duff with good cone of light, no erythema or suppuration. Bilateral cerumen noted no gross hearing deficit. NOSE: pink, moist mucosa with good air movement. Clear rhinorrhea without nasal flaring. Septum midline. Mouth: moist mucous membranes. THROAT; mild erythema noted to posterior oropharynx with moderate postnasal drainage. Without exudate or ulceration.. Uvula midline. Normal movement of soft palate. NECK: Supple and nontender with full range of motion without discomfort. No meningeal signs. LUNGS: Equal and bilateral breath sounds without wheezes, rales or rhonchi. CHEST: The chest wall is without retractions or use of accessory muscles. HEART: Has a regular rate and rhythm without murmur, gallops, click or rub. ABDOMEN: Soft, nontender with positive active bowel sounds. No rebound tenderness. EXTREMITIES: Without cyanosis, clubbing or edema. Equal 2+ distal pulses and 2 second capillary refill noted. NEUROLOGIC: alert, active, . The
== END 2023-08-31 12:00 | disposition home or self-care (01) ==
PROVIDERS: Emergency Provider Nurse Practitioner Family
DX: J02.0 Streptococcal pharyngitis (principal); Z87.891 Personal history of nicotine dependence
CPT/HCPCS: 87880; 99213; G0463

== ENCOUNTER 2023-09-27 08:02 | Emergency (ER) | payer OTHER, SELFPAY ==
--- NOTE | 2023-09-27 08:11 | ED.URI ---
HPI - URI/Sore Throat General Chief Complaint: Upper Respiratory Infection Stated Complaint: throat Time Seen by Provider: 09/27/23 08:11 Source: patient, RN notes reviewed and old records reviewed Mode of arrival: ambulatory Limitations: no limitations History of Present Illness HPI Narrative: 28 year old rosy who presents to [facility] care with complaints of sore throat, cough with increased symptoms for the past week. Patient reports that his throat feels swollen and cough is especially worse at night. Patient reports that he has been taking some OTC cold and cough medication.Patient was treated for acute pharyngitis on 08/31/2023 with Clindamycin which he states he completed. MD elicited complaint: cough and sore throat Pertinent past history: other (past strep throat) Onset (ago): week(s) (1) Severity: moderate Able to tolerate fluids by mouth: Yes Treatments prior to arrival: other (OTC cold medication) Related Data Allergies Allergy/AdvReac Type Severity Reaction Status Date / Time amoxicillin AdvReac Unknown Nausea and Verified 08/31/23 11:46 Vomiting codeine AdvReac Unknown Nausea and Verified 08/31/23 11:46 Vomiting Penicillins AdvReac Unknown Nausea and Verified 08/31/23 11:46 Vomiting Review of Systems Review of Systems: CONSTITUTIONAL:Reports malaise, chills, sweats, no known fever. EYES: Denies visual changes, redness, or discharge. ENT: Reports rhinorrhea, congestion, sinus pain,no otalgia and positive sore throat. CARDIOVASCULAR: Denies chest pain, palpitations, or edema. RESPIRATORY: Reports cough.? Denies dyspnea. GASTROINTESTINAL: Denies abdominal pain, nausea, vomiting, diarrhea SKIN: Denies rash or itching. MUSCULOSKELETAL: Denies myalgia. NEUROLOGIC: Denies headache. All systems reviewed & are unremarkable except as noted in HPI and below PMFSH Past Medical History Medical History (Updated 09/29/23 @ 09:35 by Gerri Joiner NP) Anxiety Cyst on ear Depression Disorder of left ear lobe Surgical History Surgical History (Updated 09/27/23 @ 08:31 by Gerri Joiner NP) H/O excision of dermoid cyst left ear lobe Family History Family History Mother Patient's mother is in good health Sibling Patient's brother is in good health Father Family history of alcoholism Social History Social History (Updated 09/27/23 @ 08:32 by Gerri Joiner NP) Smoking packs per day: 1 Smoking cigarettes per day: 20.0 Years smoked: 5 Smoking pack-years: 5.00 Smoking status: Former smoker Tobacco type: cigarettes Second hand tobacco smoke exposure: No Alcohol intake: current Alcohol use details: rare Substance use: current Substance use type: marijuana Living arrangements: with family Gender identity (if verbalized by the patient): Male Comments At time of signature, agree with nursing past medical, surgical, social and family history. There is no relevant family history pertinent to the presenting complaint Exam Narrative: GENERAL: Well-appearing, well-nourished, and in no acute distress. HEAD: Normocephalic EYES: PERRLA, conjunctivae clear ENT: Nares clear, turbinates edematous and erythematous, clear discharge. Mucous membranes moist. TM pearly hyatt with dull light reflex bilaterally; no tragal tenderness. Oropharynx erythematous without lesions. Tonsils not enlarged and without exudate, no drooling, no hoarseness, no trismus, uvula midline.post nasal drainage noted NECK: Supple. No lymphadenopathy CHEST: Clear to auscultation, breath sounds equal. No wheezing, rhonchi, rales, or stridor. No respiratory distress, speaks in full sentences.reports productive coughSAO2 99% on room air HEART: Regular rate and rhythm. No murmur heard. SKIN: Warm, dry, no rash. NEURO: Alert and oriented x3. PSYCH: Normal mood and affect Course Course Emergency Course: P
[2023-09-27 08:12] VITALS: BP 142/98; PULSE 83; RESP 16; TEMP 37.1; O2SAT 99
== END 2023-09-27 08:56 | disposition home or self-care (01) ==
PROVIDERS: Emergency Provider Registered Nurse
DX: J02.9 Acute pharyngitis, unspecified (principal); R05.9 Cough, unspecified; Z87.891 Personal history of nicotine dependence
CPT/HCPCS: 87081; 87880; 99213; G0463

== ENCOUNTER 2024-01-05 08:17 | Emergency (ER) | payer OTHER, SELFPAY ==
[2024-01-05 08:20] VITALS: BP 132/82; PULSE 96; RESP 20; TEMP 36.8; O2SAT 99
--- NOTE | 2024-01-05 08:26 | ED.URI ---
HPI - URI/Sore Throat General Chief Complaint: Upper Respiratory Infection Stated Complaint: poss sinus infection Time Seen by Provider: 01/05/24 08:29 Source: patient and RN notes reviewed Mode of arrival: ambulatory Limitations: no limitations History of Present Illness HPI Narrative: 28-year-old male presented for complaint of nasal congestion and drainage for about 5 days. Has taken Mucinex without relief. Denies Any associated symptoms. MD elicited complaint: cough Related Data Allergies Allergy/AdvReac Type Severity Reaction Status Date / Time amoxicillin AdvReac Unknown Nausea and Verified 08/31/23 11:46 Vomiting codeine AdvReac Unknown Nausea and Verified 08/31/23 11:46 Vomiting Penicillins AdvReac Unknown Nausea and Verified 08/31/23 11:46 Vomiting Review of Systems Review of Systems: CONSTITUTIONAL: Denies malaise, chills, sweats, fever EYES: Denies visual changes, redness, or discharge ENT: Reports rhinorrhea, congestion, denies sinus pain, otalgia, sore throat CARDIOVASCULAR: Denies chest pain, palpitations, edema RESPIRATORY: denies cough, post nasal drainage , dyspnea GASTROINTESTINAL: Denies abdominal pain, nausea, vomiting, diarrhea SKIN: Denies rash or itching MUSCULOSKELETAL: denies myalgia NEUROLOGIC: Denies headache PMFSH Past Medical History Medical History Anxiety Cyst on ear Depression Disorder of left ear lobe Surgical History Surgical History H/O excision of dermoid cyst left ear lobe Family History Family History Mother Patient's mother is in good health Sibling Patient's brother is in good health Father Family history of alcoholism Social History Social History Smoking packs per day: 1 Smoking cigarettes per day: 20.0 Years smoked: 5 Smoking pack-years: 5.00 Smoking status: Former smoker Tobacco type: cigarettes Second hand tobacco smoke exposure: No Alcohol intake: current Alcohol use details: rare Substance use: current Substance use type: marijuana Living arrangements: with family Gender identity (if verbalized by the patient): Male Exam Narrative: GENERAL: well-appearing, nontoxic no acute distress. EYES: PERRLA, conjunctivae clear ENT: Mucous membranes moist. TM pearly hyatt with dull light reflex bilaterally; no tragal tenderness. Oropharynx not erythematous without lesions or exudate, no drooling, no hoarseness, no trismus, uvula midline. No tripod positioning, muffled voice, soft palate or pharyngeal wall bulging NECK: Supple. No lymphadenopathy CHEST: Clear to auscultation, breath sounds equal. No wheezing, rhonchi, rales, or stridor. No respiratory distress, speaks in full sentences. HEART: Regular rate and rhythm. No murmur heard. SKIN: Warm, dry, no rash. NEURO: Alert and oriented x3. PSYCH: Normal mood and affect Course Course Emergency Course: Patient is aware of diagnosis, understands and agrees to treatment plan. Anticipatory guidance given. Patient agrees to follow-up as directed and is aware of reasons to seek care at the emergency department. Portions of this record may have been created with voice recognition software Level of Care: Express Care Visit Vital Signs Vital signs: reviewed MDM - URI/Sore Throat MDM Narrative Medical decision making narrative: Discussed physical exam findings consistent with viral URI. Advised supportive measures and signs/symptoms to go to the ER. Pt is appropriate for outpt treatment and f/u with PCP if symptoms persist. Differential Diagnosis Differential diagnosis: Likely upper respiratory infection, sinusitis and viral infection Discharge Plan Discharge Clinical Impression: Viral infection Patient Disposition: Home, Self-Ca
== END 2024-01-05 08:40 | disposition home or self-care (01) ==
PROVIDERS: Emergency Provider Nurse Practitioner Family; PCP Physician Assistant
DX: B34.9 Viral infection, unspecified (principal); F12.90 Cannabis use, unspecified, uncomplicated
CPT/HCPCS: 99211; G0463

== ENCOUNTER 2024-09-22 09:09 | Emergency (ER) | payer OTHER, SELFPAY ==
[2024-09-22 09:14] VITALS: BP 145/95; PULSE 82; RESP 18; O2SAT 98
--- NOTE | 2024-09-22 09:24 | ED_ITS ---
HPI - Dental/Oral General Chief complaint: Dental/Oral Stated complaint: Tooth Pain Time Seen by Provider: 09/22/24 09:24 Source: patient Mode of arrival: ambulatory Limitations: no limitations History of Present Illness HPI Narrative: 29-year-old male presents with complaint pain to bilateral lower wisdom teeth. Reports that his wisdom teeth are impacted. Saw a dentist and was told he needs to see an oral surgeon. Is on wait list at [facility] dental school. Afebrile. All systems reviewed and negative except as noted above. Related Data Home Medications ?Medication ?Instructions ?Recorded ?Confirmed ?Last Taken ?Type bupropion HCl 150 mg 24 hr tablet, mg PO 09/22/24 Unknown History extended release lorazepam 0.5 mg tablet mg 09/22/24 Unknown History trazodone 100 mg tablet mg 09/22/24 Unknown History Allergies Allergy/AdvReac Type Severity Reaction Status Date / Time amoxicillin AdvReac Unknown Nausea and Verified 09/22/24 09:22 Vomiting codeine AdvReac Unknown Nausea and Verified 09/22/24 09:22 Vomiting Penicillins AdvReac Unknown Nausea and Verified 09/22/24 09:22 Vomiting Review of Systems Review of Systems: CONSTITUTIONAL: Denies fever, chills, or sweats. EYES: Denies visual changes, redness, or discharge. ENT: Denies rhinorrhea, congestion, sore throat, or otalgia. Reports dental pain CARDIOVASCULAR: Denies chest pain, palpitations, or edema. RESPIRATORY: Denies cough or dyspnea. GASTROINTESTINAL: Denies abdominal pain, nausea, vomiting, or diarrhea. GENITOURINARY: Denies dysuria or hematuria. SKIN: Denies rash or itching. MUSCULOSKELETAL: Denies back pain, joint pain, or myalgia. NEUROLOGIC: Denies headache, numbness, or weakness. PSYCHIATRIC: Denies anxiety or depression. All other systems reviewed are negative, except as documented in HPI. [facility] Past Medical History Medical History Anxiety Cyst on ear Depression Disorder of left ear lobe Surgical History Surgical History H/O excision of dermoid cyst left ear lobe Family History Family History Mother Patient's mother is in good health Sibling Patient's brother is in good health Father Family history of alcoholism Social History Social History Smoking packs per day: 1 Smoking cigarettes per day: 20.0 Years smoked: 5 Smoking pack-years: 5.00 Smoking status: Former smoker Tobacco type: cigarettes Second hand tobacco smoke exposure: No Alcohol intake: current Alcohol use details: rare Substance use: current Substance use type: marijuana Living arrangements: with family Gender identity (if verbalized by the patient): Male Comments At time of signature, agree with nursing past medical, surgical, social and family history. There is no relevant family history pertinent to the presenting complaint. Exam Narrative: GENERAL: This is a well-nourished, well-developed patient, in no apparent distress. HEAD: normocephalic, atraumatic. EYES: PERRL. Sclera clear/white. Vision is grossly intact. EARS: External ears normal NOSE: External nose normal MOUTH: #17, 18, 31, 32 broken, impacted erythematous and swollen gums NECK: Neck supple, non-tender without lymphadenopathy, masses or thyromegaly. CARDIOVASCULAR: Regular rate and rhythm without murmurs, gallops, or rubs. RESPIRATORY: Clear to auscultation. Breath sounds equal bilaterally. No wheezes, rales, or rhonchi. SKIN: warm, Dry, intact with no suspicious lesions or rash, good texture and turgor. NEURO: awake, alert, and oriented to person, place and time. There were no obvious focal neurologic abnormalities. EXTREMITIES: No joint tenderness, effusion, or edema noted. Course Course Level of Care: Express Care Visit Vital Signs Vital signs: Vital Signs Pulse Rate 82 09/22/24 09:14 Respiratory Rate 18 09/22/24 09:14 Blood Pressure 145/95 H 09/22/24 09:14 Pulse Oximetry 98 09/22/24 09:14 Oxygen Delivery Room Air 09/22/24 09:14 Pulse Rate 82 09/22/24 09:14 Respiratory Rate 18 09/22/24 09:14 Blood Pressure 145/95 H 09/22/24 09:14 Pulse Oximetry 98 09/22/24 09:14 Oxygen Delivery Room Air 09/22/24 09:14 reviewed MDM - Dental/Oral MDM Narrative Medical decision making narrative: will treat with clindamycin. alert, nontoxic. on waitlist for dental school. recommend he go to ER for any worsening of symptoms. Differential Diagnosis Differential diagnosis: Likely dental caries, toothache and dental abscess Discharge Plan Discharge Clinical Impression: Dental infection Patient Disposition: Home Condition: Stable Instructions: Antibiotic Form, Toothache (ED) Additional Instructions: take antibiotic as prescribed. Alternate between ibuprofen and Tylenol every 4 hours to treat her pain. Follow-up at scheduled dental appointment. For any worsening of your symptoms go to the ER. Patient Language: Panamanian Prescriptions: New clindamycin HCl [Cleocin HCl] 300 mg capsule 300 mg PO QID 10 Days Qty: 40 0RF No Action lorazepam 0.5 mg tablet trazodone 100 mg tablet bupropion HCl 150 mg tablet extended release 24 hr PO Follow-up/Referrals: Ashleigh,LISA Good [Primary Care Provider] - Stand Alone Forms: Work/School Release IP Time of Disposition: :28
--- OUTSIDE RECORDS SUMMARY | 2024-09-22 09:48 | XMS_ITS | Continuity of Care Document ---
Author Organization [facility] Address [address] [facility] [place] [address] Phone Care Team Providers Care Exercise Specialist Name Role Phone Tyler FREED, Elroy Unavailable Unavailable Allergies, Adverse Reactions, Alerts Substance Reaction Status Criticality amoxicillin Active No Information Medications Medication Instructions Dosage Effective Dates (start - stop) Status Comments Vistaril 50 mg capsule take 1 capsule by oral route every bedtime 50 MG - Active Prozac 20 mg capsule take 1 Capsule by o ral route every day in the morning 20 MG - Active Procedures Procedure Date OFFICE/OUTPATIENT VISIT, EST PREV VISIT, NEW, AGE 18-39 Advance Directives Directive Yes / No Effective Date File Name No Information Encounters Encounter Description Practice Location Reason(s) For Visit Diagnoses Date Provider Providers Copied on Encounter OFFICE/OUTPA TIENT VISIT, EST [facility], [address] [place], [place], [id number], [place] tel:[phone] [facility] tonsil (chief complaint) anxiety (chief complaint) insomnia (chief complaint) Chronic depressionInsomniaT onsil hypertrophy [address], [facility] [place], [id number] , [place]. tel:[phone] Referring Provider: Elroy Scott, [address] [facility] [address], [place], [place], [id number]. tel:[phone] PREV VISIT, NEW, AGE 18-39 [facility], [address] [place], [id number], [place] tel:[phone] [facility] Physical (chief complaint) Routine Medical ExamRoutine Medical Exam [address], [address], [place], [place], [id number] , [place]. [phone] Family History Family Member Type Diagnosis Age At Onset Mother Problem (finding) Alive and well Father Problem (finding) Alive and well Payers Payer name Insurance type Covered republican ID Authoriza tion(s) No Information Social History Type Description Quantity Date Captured Comments Alcohol Use Details No Caffeine Use Details Unknown Tobacco Use Status Never smoked tobacco 2014 Smoking Status Never smoker Non-Smoking Tobacco Use Details : No Details Available : No Details Available Sex Male Vital Signs Date / Time: Height Weight BMI Pulse Rate Blood Pressure Temperature Respiratory Rate Body Surface Area Head Circumference BMI percentile Pulse Ox Inhaled Ox 3:22 PM 182.88 cm 153.00 lbs 20.7 5 kg/m eter (2) 66 /min 120/75 mm[Hg] 98.4 F 16 /min 27 Chief Complaint And Reason For Visit From encounter dated '11/14/2014 14:00'. tonsil (chief complaint). Description: Pt notices swollon tonsil 4 weeks ago and he notices white spot on tosnil and he has been haveing intermittent sore throat since then. Pt denies any dysphagia, headache or fever anxiety (chief complaint). Description: Additional information: Pt has chronic anxiety and depression. pt denies any suicidal thought. insomnia (chief complaint). Description: The patient presents for insomnia. Relevant history: a BMIof 20.75. The patient does not have: use of alcohol. The patient is experiencing depression. The patient denies headache upon awakening or wheezing. Additional information: Pt has been having insomnia for several months. failed OTC meds. Pt denies any snoring or trouble with breathing at night. Plan Of Treatment Date Type Action Status No Information History Of Present Illness Encounter Date Complaint History Of Prese nt Illness insomnia The patient pres ents for insomnia. Relevant history: a BMI of 20.75. The patient does not have: use of alcohol. The patient is experiencing depression. The patient denies headache upon awakening or wheezing. Additional information: Pt has been having insomnia for several months. failed OTC meds. Pt denies any snoring or trouble with breathing at night. anxiety Additional infor mation: Pt has chronic anxiety and depression. pt denies any suicidal thought. tonsil Pt notices swoll on tonsil 4 weeks ago and he notices white spot on tosnil and he has been haveing intermittent sore throat since then. Pt denies any dysphagia, headache or fever Instructions Date Instruction Additional Infor mation No Information Assessments Type Assessment Date assessment Chronic depression assessment Insomnia assessment Tonsil hypertrophy
--- OUTSIDE RECORDS SUMMARY | 2024-09-22 09:52 | XMS_ITS | Continuity of Care Document ---
Author Organization [facility] Address [address] [facility] [place] [address] Phone Care Team Providers Care Applied Psychology Professor Name Role Phone Tyler FREED, Elroy Unavailable Unavailable Allergies, Adverse Reactions, Alerts Substance Reaction Status Criticality amoxicillin Active No Information Medications Medication Instructions Dosage Effective Dates (start - stop) Status Comments Prozac 20 mg capsule take 1 Capsule by o ral route every day in the morning 20 MG - Active Vistaril 50 mg capsule take 1 capsule by oral route every bedtime 50 MG - Active Procedures Procedure Date OFFICE/OUTPATIENT VISIT, EST PREV VISIT, NEW, AGE 18-39 Advance Directives Directive Yes / No Effective Date File Name No Information Encounters Encounter Description Practice Location Reason(s) For Visit Diagnoses Date Provider Providers Copied on Encounter OFFICE/OUTPA TIENT VISIT, EST [facility], [address] [place], [place], [id number], [place] tel:[phone] [facility] tonsil (chief complaint) anxiety (chief complaint) insomnia (chief complaint) Chronic depressionInsomniaT onsil hypertrophy [address] [facility] [place], [id number] , [place]. tel:[phone] Referring Provider: Elroy Scott, [address] [facility] [address], [place], [place], [id number]. tel:[phone] PREV VISIT, NEW, AGE 18-39 [facility], [address] [place], [id number], [place] tel:[phone] [facility] Physical (chief complaint) Routine Medical ExamRoutine Medical Exam [address], [place], [place], [id number] , [place]. [phone] Family History Family Member Type Diagnosis Age At Onset Mother Problem (finding) Alive and well Father Problem (finding) Alive and well Payers Payer name Insurance type Covered alliance party ID Authoriza tion(s) No Information Social History [...] Date Complaint History Of Prese nt Illness tonsil Pt notices swoll on tonsil 4 weeks ago and he notices white spot on tosnil and he has been haveing intermittent sore throat since then. Pt denies any dysphagia, headache or fever anxiety Additional infor mation: Pt has chronic anxiety and depression. pt denies any suicidal thought. insomnia The patient pres ents for insomnia. Relevant history: a BMI of 20.75. The patient does not have: use of alcohol. The patient is experiencing depression. The patient denies headache upon awakening or wheezing. Additional information: Pt has been having insomnia for several months. failed OTC meds. Pt denies any snoring or trouble with breathing at night. Instructions Date Instruction Additional Infor mation No Information Assessments Type Assessment Date assessment Chronic depression assessment Insomnia assessment Tonsil hypertrophy
== END 2024-09-22 09:30 | disposition home or self-care (01) ==
PROVIDERS: Emergency Provider Nurse Practitioner Family; PCP Physician Assistant
DX: K04.7 Periapical abscess without sinus (principal); Z87.891 Personal history of nicotine dependence; F12.90 Cannabis use, unspecified, uncomplicated
CPT/HCPCS: 99213; G0463